=== PATIENT | female | born 1985 | race African-American/Black ===

== ENCOUNTER 2019-10-21 06:00 | Inpatient (IN) | payer OTHER ==
[2019-10-21] MEDS ORDERED: morphine SULFATE/PF 0.5 MG/ML (2cc Syringe - QUVA) ONE (07:53)
[2019-10-21] MEDS ORDERED: ceFAZolin SODIUM 1 GM VIAL ONE (07:54)
[2019-10-21] MEDS ORDERED: ONDANSETRON 4 MG/2 ML VIAL IVPUSH PRN (08:01)
[2019-10-21] MEDS ORDERED: morphine SULFATE/PF 0.5 MG/ML (2cc Syringe - QUVA) EP ONE (08:01)
[2019-10-21] MEDS ORDERED: OXYTOCIN 10 UNITS/ML VIAL ONE ×2 (08:31→08:50)
[2019-10-21 08:43] VITALS: BMI 37.9
[2019-10-21] MEDS ORDERED: CITRIC ACID/SODIUM CITRATE 30 ML UNIT-DOSE CUP PO ONE ×2 (09:23→09:24)
[2019-10-21] MEDS ORDERED: oxyCODONE HCL 5 MG TABLET PO PRN ×2 (09:25)
[2019-10-21] MEDS ORDERED: METHYLERGONOVINE MALEATE 0.2 MG/1 ML AMP IM PRN (09:25)
[2019-10-21] MEDS ORDERED: IBUPROFEN 800 MG/8 ML IJ IVPB PRN (09:25)
--- NOTE | 2019-10-21 09:33 | HP ---
Past Medical History - Primary Care Physician PCP:: Timi Alaniz - Admission Chief Complaint: chronic htn, niddm History of Present Illness: chronic htn, niddm History Source: Patient Limitations to Obtaining History: No Limitations - Past Medical History MANAGER MEDICAL WRITING: No: Alzheimer's, CVA, Dementia, Migraine, Multiple Sclerosis, Peripheral Neuropathy, Parkinson's, Seizure, Syncope, TIA, Vertigo, Other Cardiovascular: Yes: HTN Pulmonary: No: Asthma, Bronchitis, Cancer, COPD, O2 Dependent, Pneumonia, Previously Intubated, Pulmonary Embolus, Pulmonary Fibrosis, Sleep Apnea, Other Gastrointestinal: No: Ascites, Cancer, Constipation, Crohn's Disease, Diverticulitis, Diverticulosis, Esophageal Varices, Gastritis, GERD, GI Bleed, Hemorrhoids, Hiatal Hernia, Inflamatory Bowel Disease, Irritable Bowel Disease, Pancreatitis, Peptic Ulcer Disease, Ulcerative Colitis, Other Hepatobiliary: No: Cirrhosis, Cholelithiasis, Cholecystitis, Choledocholithiasis, Hepatitis A, Hepatitis B, Hepatitis C, Other Renal/: No: Renal Failure, Renal Inusuff, BPH, Cancer, Hematuria, Hemodialysis, Neurogenic Bladder, Renal Calculi, UTI, Other Reproductive: No: Ectopic , Endometriosis, Fibroids, PID, Polycystic Ovary Syndrome, Postmenopausal, Other ...: 4 ...Para: 0 ...Term: 0 ...: 0 ...Spon : 1 ...Induced : 2 ...Living Children: 0 ...Multiple Gestation: 0 ...EDC by Mally: 11/05/19 Heme/Onc: No: Anemia, B12 Deficiency, Bleeding Disorder, Cancer, Current Chemotherapy, Current Radiation Therapy, Hemochromatosis, Hypercoaguable State, Myeloproliferative Synd, Sickle Cell Disease, Sickle Cell Trait, Thrombocytopenia, Other Infectious Disease: No: AIDS, C-Diff, Herpes Zoster, HIV, MRSA, STD's, Tuberculosis, VREF, Other Psych: No: Addictions, Anxiety, Bipolar, Depression, Panic, Psychosis, Schizophrenia, Other Musculoskeletal: No: Bursitis, Chronic low back pain, Hemiparesis, Hemiplegia, Osteoarthritis, Paraplegia, Other Rheumatology: No: Fibromyalgia, Gout, Lupus, Rheumatoid Arthritis, Sarcoidosis, Vasculitis, Other ENT: No: Allergic Rhinitis, Sinusitis, Other Endocrine: Yes: Diabetes Mellitus Dermatology: No: Basal Cell, Cellulitis, Eczema, Melanoma, Psoriasis, Squamous Cell, Other - Past Surgical History Past Surgical History: No: None, AAA Repair, AICD, Amputation, Appendectomy, Arthrosocopy, AV Fistula/Graft, Bariatric Surgery, Breast Biopsy, Bypass, CABG, Carotid Endarterectomy, Cataract Removal, Cholecystectomy, Colectomy, Colonoscopy, Colostomy, Craniotomy, , Cystectomy, Hernia Repair, Hysterectomy, Ileal Conduit, Ileosotomy, Joint Replacement, Kidney Transplant, Laminectomy, Liver Transplant, Mastectomy, Nephrectomy, Oopherectomy, Orchiectomy, Permanent Pacemaker, Prostatectomy, Splenectomy, Stent, Thoracotomy, TURP, Tonsillectomy, Tubal Ligation, Upper Endoscopy, Valve Replacement, Vasectomy, Vein Stripping/Ligation Hx Myomectomy: No Hx Transabdominal Cerclage: No - Advance Directives Advance Directives: Yes: Living Will - Smoking History Smoking history: Never smoked Have you smoked in the past 12 months: No - Alcohol/Substance Use Hx Alcohol Use: No History of Substance Use: reports: None - Social History Usual Living Arrangement: Yes: With Significant Other Do you think of yourself as: Straight/Heterosexual ADL: Independent History of Recent Travel: No Home Medications - Allergies Allergies/Adverse Reactions: Allergies Allergy/AdvReac Type Severity Reaction Status Date / Time No Known Allergies Allergy Verified 10/21/19 07:57 - Home Medications Home Medications: Ambulatory Orders Aspirin [ASA -] 81 mg PO DAILY 10/21/19 Glyburide 5 mg PO BID 10/21/19 Vitamins (Sjr) - 1 tab PO DAILY 10/21/19 Family Medical History Family History: Denies Review of Systems - Review of Systems Constitutional: reports: No Symptoms Eyes: reports: No Symptoms HENT: reports: No Symptoms Neck: reports: No Symptoms Cardiovascular: reports: No Symptoms Respiratory: reports: No Symptoms Gastrointestinal: reports: No Symptoms Genitourinary: reports: No Symptoms Breasts: reports: No Symptoms Reported Musculoskeletal: reports: No Symptoms Integumentary: reports: No Symptoms Neurological: reports: No Symptoms Endocrine: reports: No Symptoms Hematology/Lymphatic: reports: No Symptoms Psychiatric: reports: No Symptoms Physical Exam - Maternity Vital Signs: Vital Signs Temperature 98.2 F 10/21/19 07:00 Pulse Rate 77 10/21/19 07:00 Respiratory Rate 20 10/21/19 07:00 Blood Pressure 133/79 06/25/20 07:00 O2 Sat by Pulse Oximetry (%) Constitutional: Yes: Well Nourished, No Distress, Calm Eyes: Yes: WNL, Conjunctiva Clear, EOM Intact HENT: Yes: WNL, Atraumatic, Normocephalic Neck: Yes: WNL, Supple, Trachea Midline Cardiovascular: Yes: WNL, Regular Rate and Rhythm Breast(s): Yes: WNL - Abdominal Exam/OB Fundal Height: 40 Number of Fetuses: Single Presentation: Vertex Contractions: Yes Regularity: Irritability Intensity: Mild Monitor Mode: External Heart Rate (range): 150 Heart Rate Location: [facility] Category: I Accelerations: Uniform Decelerations: None - Vaginal Exam/OB Vaginal Bleeding: No Speculum Exam: No Dilatation (cm): 1 Effacement (%): 25 Amniotic Membrane Status: Intact Presentation: Vertex/Position Station: -2 - Physical Exam Musculoskeletal: Yes: WNL Extremities: Yes: WNL Edema: Yes Integumentary: Yes: WNL Deep Tendon Reflex Grade: Normal +2 ...Motor Strength: WNL Psychiatric: Yes: WNL, Alert, Oriented Hemorrhage Risk Assessment - Risk Factors Medium Risk Factors: Yes: None High Risk Factors: Yes: None Risk Score: 1 Risk Level: Medium Risk Assessment/Plan chronic htn , niddm for c s , cervix closed, non inducible
--- NOTE | 2019-10-21 09:36 | OP ---
Operative Note - Note: Operative Date: 10/21/19 Pre-Operative Diagnosis: chronic htn, niddm, non inducible cervix Operation: primary lt c s Post-Operative Diagnosis: Same as Pre-op Surgeon: Timi Alaniz Supervisor Real Estate Office: Desmond Howell Anesthesiologist/KITCHEN CLEANER: Rolando Mendoza Anesthesia: Spinal Estimated Blood Loss (mls): 500 (no complications ) Operative Report Dictated: Yes
--- NOTE | 2019-10-21 09:41 | DS ---
Physical Exam-MACHINE SHOP WORKER Vital Signs: Vital Signs Temperature 98.2 F 10/21/19 07:00 Pulse Rate 77 10/21/19 07:00 Respiratory Rate 20 10/21/19 07:00 Blood Pressure 133/79 10/21/19 07:00 O2 Sat by Pulse Oximetry (%) Constitutional: Yes: Well Nourished, No Distress, Calm Eyes: Yes: WNL, Conjunctiva Clear, EOM Intact HENT: Yes: WNL, Atraumatic, Normocephalic Neck: Yes: WNL, Supple, Trachea Midline Cardiovascular: Yes: WNL, Regular Rate and Rhythm Respiratory: Yes: WNL, Regular, CTA Bilaterally Gastrointestinal: Yes: WNL, Normal Bowel Sounds, Soft ...Rectal Exam: Yes: WNL Renal/: Yes: WNL Pelvis: Yes: WNL External Genitalia: Yes: Normal Internal Exam Deferred: Yes Vaginal Exam: Yes: Normal Cervix: Yes: Normal Uterus: Yes: Normal Adnexa: Normal: Bilateral ....Post : Yes: Uterus firm, Uterus non-tender Breast(s): Yes: WNL Musculoskeletal: Yes: WNL Extremities: Yes: WNL Integumentary: Yes: WNL Wound/Incision: Yes: Clean/Dry, Well Approximated Neurological: Yes: WNL, Alert, Oriented ...Motor Strength: WNL Psychiatric: Yes: WNL, Alert, Oriented Delivery - Delivery Section: Primary Type of Anesthesia: Spinal Episiotomy/Laceration: None EBL (cc): 500 Delivery, Single - Stages of Labor Date of Delivery: 10/21/19 Time of Delivery: 08:25 Time Placenta Delivered: 08:26 Placenta: Yes: Spontaneous - Condition of Infant Counseling Services Director/Data Collection Interviewer Present: Yes Name: Judith Gale Infant Gender: Female Weight: 3.005 kg Position: Left, OA Total Hours ROM (Hrs/Mins): 0hrs 2min - 1 Minute Total Score: 9 5 Minutes Total Score: 9 - Feeding Plan Initial Plan: Exclusive throughout hospitalization Discharge Summary Problems reviewed: Yes Reason For Visit: SCHEDULED Procedures: Principal: primary lt c s Other Procedures: none Hospital Course: uneventful Health Concerns: none Plan of Treatment: oob as much as possible Condition: Good - Instructions Diet, Activity, Other Instructions: Physical activity Resume your normal everyday activity as tolerated no heavy lifting or exercise until seen by your surgeon. You may walk unlimited lizbeth of and climb stairs. You may resume driving the car when you feel safe and comfortable behind the wheel. No sexual activity as instructed. Wound care If you have a bandage, leave it on, and keep dry for 48-72 hours. After that time discard the outer bandage. If they are tapes on the skin under the out of bandage leave them in place. They will peel off in the next 7 to 10 days. Do Not Peel them off. You may shower the day after surgery. If there are tapes present on the skin, you may shower over them. Diet There are no dietary restrictions. Eat healthy, high-fiber foods. Drink 6 to 8 glasses of liquid each day. This will assist in keeping your bowels are regular. Pain management You may take Tylenol or acetaminophen or Ibuprofen (for example, Motrin, Advil etc.) from my pain prescription medication is ordered should be taken as prescribed for moderate to severe pain. Call MD for any of the following: call dr andrews in 2 weeks for appointment Severe pain not relieved by medication Fever of 101 or higher Excessive bleeding or drainage on dressing Inability to urinate Disposition: HOME - Home Medications Comprehensive Discharge Medication List: Ambulatory Orders Aspirin [ASA -] 81 mg PO DAILY 10/21/19 Glyburide 5 mg PO BID 10/21/19 Vitamins (Sjr) - 1 tab PO DAILY 10/21/19 Prescription Drug Monitoring Program (I-STOP) results: I-STOP reviewed and no issues identified
[2019-10-21] MEDS: PRENATAL VITAMINS W/ FOLIC ACID TABLET (FP) PO SCH (10:13)
[2019-10-21] MEDS ORDERED: OXYTOCIN 20 UNITS in 0.9% NS 20 UNIT/1,000 ML INFUS.BAG IV ONE (10:26)
[2019-10-21] MEDS ORDERED: LABETALOL HCL 100 MG TABLET (FP) ONE (10:26)
[2019-10-21] MEDS: LABETALOL HCL 100 MG TABLET (FP) PO SCH ×2 (10:28→22:56)
[2019-10-21] MEDS: OXYTOCIN 20 UNITS in 0.9% NS 20 UNIT/1,000 ML INFUS.BAG IV SCH (18:40)
[2019-10-21] MEDS ORDERED: SENNOSIDES/DOCUSATE COMBO (SENNA PLUS) TABLET (UD) PO PRN (22:00)
[2019-10-22] MEDS: glyBURIDE 5 MG TABLET PO SCH (06:31)
--- NOTE | 2019-10-22 08:08 | PN ---
Progress Note (short form) - Note Progress Note: 34F s/p C/S under epidural with duramorph. No new c/o. Vital Signs Temp 98.7 F 10/22/19 05:53 Pulse 84 10/22/19 05:53 Resp 18 10/22/19 06:00 BP 120/63 10/22/19 05:53 Pulse Ox 100 10/21/19 10:30 Intake & Output 10/21/19 10/21/19 10/22/19 11:59 23:59 11:59 Intake Total 1950 1000 Output Total 226 159 1361 Balance 1650 -700 -700 Weight 257 lb Intake: IV 1950 1000 NORMAL SALINE+20 UNITS 1000 OXYTOCIN - 20 unit In 1, 000 ml @ 125 mls/hr IV [facility] Rx#:[id number] [id number] 1000 bmn093+20units pitocin 950 Output: Urine 447 637 6241 Wagner 300 700 200 Void 1500 Other: Voiding Method Indwelling Catheter Toilet Height 5 ft 9 in Body Mass Index (BMI) 37.9 Weight 6 lb 10 oz Length 18 in - No anesthesia complications
[2019-10-22] MEDS ORDERED: BISACODYL 10 MG SUPP.RECT RC PRN (09:25)
[2019-10-22] MEDS: LABETALOL HCL 100 MG TABLET (FP) PO SCH ×2 (09:30→21:35)
[2019-10-22] MEDS: ENOXAPARIN NA (PORCINE) 40 MG/0.4 ML DISP.SYRIN SQ SCH (09:31)
[2019-10-22] MEDS: PRENATAL VITAMINS W/ FOLIC ACID TABLET (FP) PO SCH (09:41)
[2019-10-22] MEDS ORDERED: DIPHTH,PERTUSS(ACELL),TET 0.5 ML DISP.SYRIN IM ONE (10:00)
[2019-10-22 10:03] LABS: BASO % 0.4 % (0-2.0); EOS % 0.8 % (0-4.5); HEMATOCRIT 36.4 % (32.4-45.2); HEMOGLOBIN 11.6 GM/dL (10.7-15.3); MCH 23.9 pg (25.7-33.7); MEAN CELL VOLUME 74.7 fl (80-96); MEAN PLT VOLUME 7.9 fl (7.5-11.1); MONO % 8.9 % (3.8-10.2); NEUT % 74.9 % (42.8-82.8); PLATELET COUNT 325 K/MM3 (134-434); RBC 4.87 M/mm3 (3.60-5.2); RDW 15.4 % (11.6-15.6); WHITE BLOOD COUNT 12.1 K/mm3 (4.0-10.0)
[2019-10-22] MEDS: ACETAMINOPHEN 325 MG TABLET (FP) PO PRN ×2 (10:45→16:08)
[2019-10-22] MEDS: IBUPROFEN 600 MG TABLET (FP) PO PRN ×2 (10:45→16:07)
[2019-10-22] MEDS: SIMETHICONE 80 MG TAB.CHEW (FP) PO PRN ×2 (10:58→16:09)
[2019-10-22] MEDS: OXYTOCIN 20 UNITS in 0.9% NS 20 UNIT/1,000 ML INFUS.BAG IV SCH (20:41)
[2019-10-23] MEDS: SIMETHICONE 80 MG TAB.CHEW (FP) PO PRN ×2 (04:11→08:56)
[2019-10-23] MEDS: ACETAMINOPHEN 325 MG TABLET (FP) PO PRN ×2 (04:11→08:54)
[2019-10-23] MEDS: IBUPROFEN 600 MG TABLET (FP) PO PRN ×2 (04:11→08:54)
[2019-10-23] MEDS: glyBURIDE 5 MG TABLET PO SCH (06:29)
--- NOTE | 2019-10-23 07:32 | PN ---
Post Progress Note - Subjective Subjective: Feels great. No BM yet. Flatus yes. Post Day: 2 Type of Delivery: Primary C/S Vital Signs: Vital Signs Temperature 98.2 F 10/22/19 21:59 Pulse Rate 88 10/22/19 21:59 Respiratory Rate 18 10/22/19 21:59 Blood Pressure 133/68 10/22/19 21:59 O2 Sat by Pulse Oximetry (%) 100 10/21/19 10:30 Breast Exam: Yes: Soft, Engorged Uterus: Yes: Fundus Firm Incision: Yes: Dressing dry and intact, Sutures intact Abdomen/GI: Yes: Abdomen soft, Passing flatus, Tolerating PO Lochia: Yes: Rubra Lochia, amount: Small Extremities: Yes: Calves non-tender Activity: Ambulating - Labs Labs: CBC WBC 12.1 K/mm3 (4.0-10.0) H 10/22/19 09:46 RBC 4.87 M/mm3 (3.60-5.2) 10/22/19 09:46 Hgb 11.6 GM/dL (10.7-15.3) 10/22/19 09:46 Hct 36.4 % (32.4-45.2) 10/22/19 09:46 MCV 74.7 fl (80-96) L 10/22/19 09:46 MCH 23.9 pg (25.7-33.7) L 10/22/19 09:46 MCHC 32.0 g/dl (32.0-36.0) 10/22/19 09:46 RDW 15.4 % (11.6-15.6) 10/22/19 09:46 Plt Count 325 K/MM3 (134-434) 10/22/19 09:46 MPV 7.9 fl (7.5-11.1) 10/22/19 09:46 Absolute Neuts (auto) 9.1 K/mm3 (1.5-8.0) H 10/22/19 09:46 Neutrophils % 74.9 % (42.8-82.8) D 10/22/19 09:46 Lymphocytes % 15.0 % (8-40) D 10/22/19 09:46 Monocytes % 8.9 % (3.8-10.2) 10/22/19 09:46 Eosinophils % 0.8 % (0-4.5) 10/22/19 09:46 Basophils % 0.4 % (0-2.0) 10/22/19 09:46 Nucleated RBC % 0 % (0-0) 10/22/19 09:46 Problem List - Problems (1) Delivery by section Code(s): CJM1413 - Assessment/Plan Healing very nicely. No complaints. All fully discussed. Instructions given. Discharge today.
[2019-10-23] MEDS: ENOXAPARIN NA (PORCINE) 40 MG/0.4 ML DISP.SYRIN SQ SCH (09:06)
[2019-10-23] MEDS: LABETALOL HCL 100 MG TABLET (FP) PO SCH (09:07)
[2019-10-23] MEDS: PRENATAL VITAMINS W/ FOLIC ACID TABLET (FP) PO SCH (09:07)
[2019-10-23 09:47] VITALS: BP 132/71; PULSE 83; TEMP 97.6
--- NOTE | 2019-10-27 17:54 | PATH ---
Surgical Pathology Report Patient Name: EDWARD MANSFIELD [facility]. Rec. #: [id number] /Age/Gender: 1985 (Age: 34) / F Account: [id number] Location: [address] [place] [address] OBG/COUNTERPERSON Taken: 10/21/2019 Received: 10/22/2019 Reported: 10/27/2019 Physicians: Timi Alaniz MD Specimen(s) Received PLACENTA Clinical History , primary Final Diagnosis PLACENTA: THIRD TRIMESTER PLACENTA WITH FOCAL CALCIFICATION AND PERIVILLOUS FIBRIN DEPOSITION. TRIVASCULAR CORD. MEMBRANES WITH NO DIAGNOSTIC ABNORMALITIES. Electronically Signed Isabella Ballesteros M.D. Gross Description The specimen is received fresh labeled placenta and is a 452 gram, 19.5 x 16.5 x 2.7 cm. placenta with attached membranes and umbilical cord. The attached membranes are pantoja, translucent with focal opacities and insert marginally. The umbilical cord measures 41 cm. in length and averages 1.1 cm. in diameter. The cord inserts eccentrically, 2.5 cm. to the nearest margin. No true knots or strictures are identified. Cut surface of the umbilical cord reveals 3 vessels. The surface is tam-blue with minimal fibrin deposition and appropriate caliber vessels. The maternal surface is red-brown with focal defects. Sectioning reveals red-brown, spongy parenchyma. No lesions are identified. Shipping Support Clerk sections are submitted in three cassettes as follows: 1- membrane rolls and umbilical cord; 2-3- full thickness sections of placenta. 10/25/2019 [facility]10/25/2019
--- NOTE | 2019-12-24 18:14 | OP ---
DATE OF OPERATION: 10/21/2019 PREOPERATIVE DIAGNOSIS: Patient's request and chronic high blood pressure, noninsulin dependent diabetic, and noninducible cervix. POSTOPERATIVE DIAGNOSIS: Patient's request and chronic high blood pressure, noninsulin dependent diabetic, and noninducible cervix. PROCEDURE: Primary low transverse section. SURGEON: Timi Alaniz MD. CLIENT SERVICE AND CONSULTING MANAGER: INDER Christensen, and Rolando Mendoza MD. ANESTHESIA: Spinal. BLOOD LOSS: About 500 mL. INDICATION: This is a 34-year-old female patient with noninsulin dependent diabetic before with chronic high blood pressure on labetalol before . Patient is currently 38 weeks . Patient's cervix is noninducible. Patient's blood pressure and BMI is high, and even with insulin and also with blood pressure medication, both blood pressure and glucose level are borderline well controlled. With all the risks and benefits, alternatives, the patient was advised to be induced at 38 weeks; however, cervix is noninducible. Patient scored 1 out of 10. So patient agreed, patient insists and requests about would be the safer way for delivering the baby. DESCRIPTION OF PROCEDURE: Patient was taken to the OR, placed on operating table in supine position after spinal anesthesia was obtained. The patient's abdomen and pelvis were prepped and draped in the usual sterile manner. Pfannenstiel incision was made. The incision was made through skin, subcutaneous tissue, until the fascia was nicked in the midline. The fascia was extended bilaterally. Intraperitoneal cavity was entered, bladder flap was created. Low transverse segment was entered, baby delivered from LOT position. Baby was handed over to the share dairy farmer after umbilical cord was doubly clamped and cut. Cord blood gas was obtained. Placenta was removed. Uterus was closed in single layer, first layer interlocking Vicryl suture, good hemostasis, and both gutters clean. Both ovaries, fallopian tubes, uterus were within normal limits, no complications. Tolerated procedure well. Blood loss about 500 mL. Bladder flap was closed back. Peritoneum was closed. Fascia was closed. Skin was closed. Transferred to recovery room in stable condition. MD ZAKI WERNER/[id number]
== END 2019-10-23 11:11 | disposition home or self-care (01) | DRG 540 ==
LOC: JLDR 06:00 → J3N 11:15
PROVIDERS: ADMIT Obstetrics & Gynecology; ATTEND Obstetrics & Gynecology
PROC: 10D00Z1 Extraction of Products of Conception, Low, Open Approach (ICD-10-PCS; principal; 2019-10-21)
DX: O13.4 Gestational [pregnancy-induced] hypertension without significant proteinuria, complicating childbirth (principal); O24.429 Gestational diabetes mellitus in childbirth, unspecified control; Z3A.37 37 weeks gestation of pregnancy; Z37.0 Single live birth
CPT/HCPCS: 36415; 82962; 85025; 88307-TC; 90715